=== PATIENT | male | born 1965 | race Caucasian/White ===

== ENCOUNTER 2018-10-10 02:23 | Emergency (ER) | payer SELFPAY ==
[~2018-10-10] VITALS: Ht 182.9 cm; Wt 90.7 kg
[2018-10-10] MEDS ORDERED: VANCOMYCIN IV 1,000 MG in IV DEXTROSE 5% 250 ML IV ONE (03:00)
[2018-10-10] MEDS ORDERED: CEFTRIAXONE 1 G in IV DEXTROSE 5% 50 ML IV ONE (03:00)
--- NOTE | 2018-10-10 03:00 | NUR ---
Pt. ambulated into ED w/ c/o R blount wound abscess x 2 weeks, wound is circular approx. 3cm diameter, scabbed over and surrounded by red area, pt. reports being homeless,
[2018-10-10] MEDS ORDERED: CEFTRIAXONE 1 G VIAL ONE (03:15)
--- NOTE | 2018-10-10 03:20 | NUR ---
Wound culture collected and sent to lab,
[2018-10-10] MEDS ORDERED: VANCOMYCIN IV 200 ML ONE (03:45)
--- NOTE | 2018-10-10 04:30 | NUR ---
Pt. up to use restroom, ambulated w/ steady gait,
[2018-10-10] MEDS ORDERED: MUPIROCIN 2% OINT 22 GM TUBE ONE (04:57)
[2018-10-10] MEDS ORDERED: MUPIROCIN 2% OINT 22 GM TUBE TP ONE (05:00)
--- NOTE | 2018-10-10 05:00 | NUR ---
Pt. resting in bed w/ eyes closed, NAD
[2018-10-10] MEDS ORDERED: IBUPROFEN 800 MG TABLET ONE (05:50)
[2018-10-10] MEDS ORDERED: IBUPROFEN 800 MG TABLET PO ONE (06:00)
--- NOTE | 2018-10-10 06:05 | NUR ---
Patient discharged to home in stable conditon. Written and verbal after care instructions given. Patient verbalizes understanding of instructions. Pt. d/c w/ prescription per MD order, d/c paper signed, homeless waiver signed - pt. refuses service at this time, ID band/IV removed, all belongings w/ pt., ambulated off unit w/ steady gait, NAD
== END 2018-10-10 06:30 | disposition home or self-care (01) ==
LOC: ER 06:11
DX: L03.115 Cellulitis of right lower limb (principal); L08.9 Local infection of the skin and subcutaneous tissue, unspecified; F17.200 Nicotine dependence, unspecified, uncomplicated; Z59.0 Homelessness
CPT/HCPCS: 87070; 87077; 96365; 96366; 96367; 99283; J0696; J3370; J7060; A4663